=== PATIENT | male | born 1985 | race Caucasian/White ===

== ENCOUNTER 2017-01-02 13:44 | Inpatient (IN) | payer MEDICARE, OTHER ==
[2017-01-01 23:00] VITALS: BP 132/80
[~2017-01-02] VITALS: Ht 172.7 cm; Wt 101.2 kg
[2017-01-02 14:10] LABS: BASO # 0.1 x10^3/uL (0.0-0.2); BASO % 1 % (0-3); EOS % 2 % (0-3); HEMATOCRIT 44.5 % (39.0-53.0); HEMOGLOBIN 15.3 g/dL (13.0-17.5); LYMPH # 2.6 x10^3/uL (1.0-4.8); LYMPH % 34 % (24-48); MEAN CORPUSCULAR HEMOGLOBIN 33 pg (25-35); MEAN CORPUSCULAR HGB CONC 34 g/dL (31-37); MEAN CORPUSCULAR VOLUME 96 fL (79-100); MONO % 7 % (0-9); NEUT % 57 % (31-73); PLATELET COUNT 315 x10^3/uL (140-400); RED BLOOD COUNT 4.65 x10^6/uL (4.30-5.70); RED CELL DISTRIBUTION WIDTH 13.2 % (11.5-14.5); WHITE BLOOD COUNT 7.7 x10^3/uL (4.0-11.0)
[2017-01-02 14:21] LABS: CALCIUM 9.2 mg/dL (8.5-10.1); CREATININE 0.9 mg/dL (0.7-1.3); GFR 99.1
[2017-01-02 14:49] LABS: BARBITURATES NEG (NEG); BENZODIAZEPINES NEG (NEG); CANNABINOIDS NEG (NEG); COCAINE NEG (NEG); METHADONE NEG (NEG); OPIATES NEG (NEG); PHENCYCLIDINE NEG (NEG)
[2017-01-02 14:50] LABS: ETHANOL, URINE NEG (NEG)
[2017-01-02] MEDS: ACETAMINOPHEN 500 MG TABLET PO ONE ×2 (15:15→18:35)
--- NOTE | 2017-01-02 17:31 | PHYS DOC ---
Past Medical History Past Medical History: Hypertension, Schizophrenia, Unknown, Other Additional Past Medical Histor: AUTISM, PT IS POOR HISTORIAN- FUNCTIONS @ LEVEL OF EARLY ADOLESCENT Past Surgical History: Other Additional Past Surgical Histo: PT DENIES, IS POOR HISTORIAN Alcohol Use: None Drug Use: None Adult General Chief Complaint Chief Complaint: SUICDAL IDEATION HPI HPI 31-year-old male has history of behavioral disorder and autism with a developmental cognitive ability of a 12-year-old who presents with suicidal ideation. Patient did state he tried to stab himself before can is been trying to choke himself in an attempt to kill his life. He states he has multiple ways he would like to kill himself including drowning and is fixation. Patient denies any recent drugs or alcohol. He is fully alert and oriented and able answer my questions and complaining of suicidal thoughts. He denies any chest pain or shortness breath. He denies any fever or chills. Review of Systems Review of Systems Constitutional: Denies fever or chills [] Eyes: Denies change in visual acuity, redness, or eye pain [] HENT: Denies nasal congestion or sore throat [] Respiratory: Denies cough or shortness of breath [] Cardiovascular: No additional information not addressed in HPI [] GI: Denies abdominal pain, nausea, vomiting, bloody stools or diarrhea [] : Denies dysuria or hematuria [] Musculoskeletal: Denies back pain or joint pain [] Integument: Denies rash or skin lesions [] Neurologic: Denies headache, focal weakness or sensory changes [] Endocrine: Denies polyuria or polydipsia [] Current Medications Current Medications Current Medications Medications (Trade) Dose Ordered Sig/[facility] Start Time Stop Time Status Last Admin Dose Admin Acetaminophen (Tylenol) 1,000 mg 1X ONCE 01/02/17 15:15 01/02/17 15:23 DC Allergies Allergies Allergies Coded Allergies Type Severity Reaction Last Updated Verified Unable to Assess 01/02/17 No Physical Exam Physical Exam Constitutional: Well developed, well nourished, no acute distress, non-toxic appearance. [] HENT: Normocephalic, atraumatic, bilateral external ears normal, oropharynx moist, no oral exudates, nose normal. [] Eyes: PERRLA, EOMI, conjunctiva normal, no discharge. [] Neck: Normal range of motion, no tenderness, supple, no stridor. [] Cardiovascular:Heart rate regular rhythm, no murmur [] Lungs & Thorax: Bilateral breath sounds clear to auscultation [] Abdomen: Bowel sounds normal, soft, no tenderness, no masses, no pulsatile masses. [] Skin: Warm, dry, no erythema, no rash. [] Back: No tenderness, no CVA tenderness. [] Extremities: No tenderness, no cyanosis, no clubbing, ROM intact, no edema. [] Neurologic: Alert and oriented X 3, normal motor function, normal sensory function, no focal deficits noted. [] Psychologic: Affect normal, judgement normal, mood normal. [] Current Patient Data Vital Signs Vital Signs Date Time Temp Pulse Resp B/P Pulse Ox O2 Delivery O2 Flow Rate FiO2 01/02/17 16:30 98 16 144/89 96 01/02/17 13:56 97.9 Room Air 97.9 Lab Values Laboratory Tests Test 01/02/17 14:00 01/02/17 14:32 White Blood Count 7.7x10^3/uL (4.0-11.0) Red Blood Count 4.65x10^6/uL (4.30-5.70) Hemoglobin 15.3g/dL (13.0-17.5) Hematocrit 44.5% (39.0-53.0) Mean Corpuscular Volume 96fL (79-100) Mean Corpuscular Hemoglobin 33pg (25-35) Mean Corpuscular Hemoglobin Concent 34g/dL (31-37) Red Cell Distribution Width 13.2% (11.5-14.5) Platelet Count 315x10^3/uL (140-400) Neutrophils (%) (Auto) 57% (31-73) Lymphocytes (%) (Auto) 34% (24-48) Monocytes (%) (Auto) 7% (0-9) Eosinophils (%) (Auto) 2% (0-3) Basophils (%) (Auto) 1% (0-3) Neutrophils # (Auto) 4.4x10^3uL (1.8-7.7) Lymphocytes # (Auto) 2.6x10^3/uL (1.0-4.8) Monocytes # (Auto) 0.6x10^3/uL (0.0-1.1) Eosinophils # (Auto) 0.1x10^3/uL (0.0-0.7) Basophils # (Auto) 0.1x10^3/uL (0.0-0.2) Sodium Level 140mmol/L (136-145) Potassium Level 4.0mmol/L (3.5-5.1) Chloride Level 101mmol/L (98-107) Carbon Dioxide Level 27mmol/L (21-32) Anion Gap 12 (6-14) Blood Urea Nitrogen 13mg/dL (8-26) Creatinine 0.9mg/dL (0.7-1.3) Estimated GFR (Cockcroft-Gault) 99.1 Glucose Level 117mg/dL (70-99) H Calcium Level 9.2mg/dL (8.5-10.1) Ethyl Alcohol Level < 10mg/dL (0-10) Urine Opiates Screen Neg (NEG) Urine Methadone Screen Neg (NEG) Urine Barbiturates Neg (NEG) Urine Phencyclidine Screen Neg (NEG) Urine Amphetamine/Methamphetamine Neg (NEG) Urine Benzodiazepines Screen Neg (NEG) Urine Cocaine Screen Neg (NEG) Urine Cannabinoids Screen Neg (NEG) Urine Ethyl Alcohol Neg (NEG) Laboratory Tests 01/02/17 14:00 Laboratory Tests 01/02/17 14:00 EKG EKG [] Radiology/Procedures Radiology/Procedures [] Course & Med Decision Making Course & Med Decision Making Pertinent Labs and Imaging studies reviewed. (See chart for details) This 31-year-old male with ongoing suicidal thoughts will be admitted to hospital. Psychiatric assessment team was notified and was able to find placement for him at a facility but he will not be able to be transferred at this time as they do not have availability. For this reason, the patient will be admitted for his ongoing suicidal ideation. Laboratory workup was obtained and was negative for any acute abnormalities. He is medically cleared from my standpoint. I discussed the need to admit the patient with the hospitalist, Dr. Cooper, who agreed to accept the patient for further evaluation and treatment. Dragon Disclaimer Dragon Disclaimer This electronic medical record was generated, in whole or in part, using a voice recognition dictation system. Departure Departure Impression: Primary Impression: Suicidal ideation Disposition: ADMITTED INPATIENT Admitting Physician: Mere Cooper Condition: STABLE Referrals: UNKNOWN PCP NAME (PCP) AXEL LESLIE DO Jan 02, 2017 17:31
[2017-01-02] MEDS ORDERED: ACETAMINOPHEN 325 MG TABLET. PO PRN (17:45)
[2017-01-02] MEDS ORDERED: ONDANSETRON PF 4 MG/2 ML VIAL. IV PRN ×2 (17:45→19:05)
--- NOTE | 2017-01-02 18:44 | ACF ---
Admission Forms Criteria PSYCHIATRIC DISORDERS Clinical Indications for Inpatient Care (Place 'X' for any and all applicable criteria): Ongoing inpatient care may be needed for ANY ONE of the following(1)(2)(3)(4)(6) (7)(8): [X]I. Danger to self or others not manageable at lower level of care. [ ]II. Grave disability (eg, inability to perform self care necessary at lower level of care) [ ]III. Agitation or inappropriate behavior interfering with care for primary condition (eg, attempting to discontinue lines or drains prematurely, unable to cooperate with respiratory care) [ ]IV. Severe disability or disorder indicated by ALL of the following: [ ]a) Severe behavioral health disorder-related symptoms or condition indicated by ANY ONE of the following: [ ]i) Severe problem with cognition, memory, judgment, or impulse control [ ]ii) Severe clinical manifestations (eg, hallucinations, delusions, other acute psychotic symptoms, shawn, extreme agitation or anxiety) [ ]b) Patient management at lower level of care is not feasible until acute intervention or modification is initiated. Extended stay beyond goal length of stay for the primary condition may be indicated when ANY ONE of the following is present: (1)(2)(3)(4): [ ]a) Patient is a danger to self or others and not manageable at lower level of care. [ ]b) Behavior crisis management, including physical or chemical restraints, is required and is not available at a lower level of care. [ ]c) Behavioral symptoms (e.g., agitation, somnolence, inappropriate behavior) are present, and are not manageable at a lower level of care. [ ]d) Patient cannot understand follow-up treatment and crisis plan. [ ]e) Provider and supports are not sufficiently available at lower level of care. [ ]f) Patient cannot participate (e.g., verify absence of plan for harm) and is in needed of monitoring. The original [employer] content created by [employer] has been revised. The portions of the content which have been revised are identified through the use of italic text or in bold, and [facility] has neither reviewed nor approved the modified material. All other unmodified content is copyright [facility] [employer]. Please see references footnoted in the original [facility] edition 2016 Admission Criteria Met?: Yes EDER AVILA Jan 02, 2017 18:44
[2017-01-02 19:10] VITALS: BP 129/83
[2017-01-02] MEDS ORDERED: ZOLPIDEM 5 MG TABLET. PO PRN (19:15)
[2017-01-02] MEDS ORDERED: LORAZEPAM 2 MG/ML VIAL IV PRN (19:15)
[2017-01-02 19:56] VITALS: BP 129/83
--- NOTE | 2017-01-02 19:59 | PDOC1 ---
History and Physical Date of Admission Date of Admission DATE: 01/02/17 TIME: 19:54 Identification/Chief Complaint Chief Complaint suicide attempt Source Source: Caregiver, Chart review, Patient History of Present Illness History of Present Illness 31 y.o male, rather poor historian now or at least limited as he is not overtly open to me, suicide attempt today by choking himself (trying to strangle himself with his own hands) and mention of stabbing attempt per ER documentation, HAs attempted before, HE tried this at home, lives with parents? and the mother called EMS. UDs and labs neg. Pt admitted for the SI, Pt feel sore on the neck, when asked why he did it, he mentions something about his brother and he does not want to go to nursing home for something he did not do. Pt slightly drowsy through my encounter Past Medical History Psych: Depression Past Surgical History Past Surgical History: No pertinent history Family History Family History: Family History Unknown Social History Smoke: No ALCOHOL: social Drugs: None Current Problem List Problem List Problems Medical Problems: (1) Suicidal ideation Status: Acute Problems: Current Medications Current Medications Current Medications Acetaminophen (Tylenol) 1,000 mg 1X ONCE PO Last administered on 01/02/17t 18: 35; Start 01/02/17 at 15:15; Stop 01/02/17 at 15:23; Status DC Ondansetron HCl (Zofran) 4 mg PRN Q8HRS PRN IV NAUSEA/VOMITING; Start 01/02/17 at 17:45; Stop 01/02/17 at 19:06; Status DC Acetaminophen (Tylenol) 650 mg PRN Q4HRS PRN PO FEVER; Start 01/02/17 at 17:45 ; Stop 01/03/17 at 17:44 Ondansetron HCl (Zofran) 4 mg PRN Q6HRS PRN IV NAUSEA/VOMITING; Start 01/02/17 at 19:05 Alprazolam (Xanax) 0.5 mg PRN Q8HRS PRN PO ANXIETY / AGITATION; Start 01/02/17 at 19:15 Lorazepam (Ativan) 2 mg PRN Q4HRS PRN IV ANXIETY / AGITATION; Start 01/02/17 at 19:15 Zolpidem Tartrate (Ambien) 5 mg PRN QHS PRN PO INSOMNIA, MAY REPEAT IN 1HR; Start 01/02/17 at 19:15 Allergies Allergies: Coded Allergies: No Known Drug Allergies (Unverified , 01/02/17) ROS Review of System limited, drowsy, weak, not open to my encounter Physical Exam General: No acute distress, Other (sleepy, drowsy) Lungs: Clear to auscultation, Normal air movement Heart: S1S2, no gallops Cardiovascular: S1, S2 Breasts: Normal, Rt breast nml w/o mass, Lt breast nml w/o mass, Nipples normal Abdomen: Normal bowel sounds, Soft, No tenderness, No hepatosplenomegaly, No masses Male Genitals Exam: normal genitalia, normal prostate Rectal Exam: mass PELVIC: Nml ext vulva Extremities: No clubbing, No cyanosis, No edema, Normal pulses, No tenderness/ swelling Skin: No rashes, No breakdown, No significant lesion Psych/Mental Status: Mental status NL, Mood NL Vitals Vitals Vital Signs Date Time Temp Pulse Resp B/P Pulse Ox O2 Delivery O2 Flow Rate FiO2 01/02/17 18:00 92 16 141/93 95 01/02/17 13:56 97.9 Room Air 97.9 Labs Labs Laboratory Tests Test 01/02/17 14:00 01/02/17 14:32 White Blood Count 7.7x10^3/uL (4.0-11.0) Red Blood Count 4.65x10^6/uL (4.30-5.70) Hemoglobin 15.3g/dL (13.0-17.5) Hematocrit 44.5% (39.0-53.0) Mean Corpuscular Volume 96fL (79-100) Mean Corpuscular Hemoglobin 33pg (25-35) Mean Corpuscular Hemoglobin Concent 34g/dL (31-37) Red Cell Distribution Width 13.2% (11.5-14.5) Platelet Count 315x10^3/uL (140-400) Neutrophils (%) (Auto) 57% (31-73) Lymphocytes (%) (Auto) 34% (24-48) Monocytes (%) (Auto) 7% (0-9) Eosinophils (%) (Auto) 2% (0-3) Basophils (%) (Auto) 1% (0-3) Neutrophils # (Auto) 4.4x10^3uL (1.8-7.7) Lymphocytes # (Auto) 2.6x10^3/uL (1.0-4.8) Monocytes # (Auto) 0.6x10^3/uL (0.0-1.1) Eosinophils # (Auto) 0.1x10^3/uL (0.0-0.7) Basophils # (Auto) 0.1x10^3/uL (0.0-0.2) Sodium Level 140mmol/L (136-145) Potassium Level 4.0mmol/L (3.5-5.1) Chloride Level 101mmol/L (98-107) Carbon Dioxide Level 27mmol/L (21-32) Anion Gap 12 (6-14) Blood Urea Nitrogen 13mg/dL (8-26) Creatinine 0.9mg/dL (0.7-1.3) Estimated GFR (Cockcroft-Gault) 99.1 Glucose Level 117mg/dL (70-99) Calcium Level 9.2mg/dL (8.5-10.1) Ethyl Alcohol Level < 10mg/dL (0-10) Urine Opiates Screen Neg (NEG) Urine Methadone Screen Neg (NEG) Urine Barbiturates Neg (NEG) Urine Phencyclidine Screen Neg (NEG) Urine Amphetamine/Methamphetamine Neg (NEG) Urine Benzodiazepines Screen Neg (NEG) Urine Cocaine Screen Neg (NEG) Urine Cannabinoids Screen Neg (NEG) Urine Ethyl Alcohol Neg (NEG) Laboratory Tests Test 01/02/17 14:00 01/02/17 14:32 White Blood Count 7.7x10^3/uL (4.0-11.0) Red Blood Count 4.65x10^6/uL (4.30-5.70) Hemoglobin 15.3g/dL (13.0-17.5) Hematocrit 44.5% (39.0-53.0) Mean Corpuscular Volume 96fL (79-100) Mean Corpuscular Hemoglobin 33pg (25-35) Mean Corpuscular Hemoglobin Concent 34g/dL (31-37) Red Cell Distribution Width 13.2% (11.5-14.5) Platelet Count 315x10^3/uL (140-400) Neutrophils (%) (Auto) 57% (31-73) Lymphocytes (%) (Auto) 34% (24-48) Monocytes (%) (Auto) 7% (0-9) Eosinophils (%) (Auto) 2% (0-3) Basophils (%) (Auto) 1% (0-3) Neutrophils # (Auto) 4.4x10^3uL (1.8-7.7) Lymphocytes # (Auto) 2.6x10^3/uL (1.0-4.8) Monocytes # (Auto) 0.6x10^3/uL (0.0-1.1) Eosinophils # (Auto) 0.1x10^3/uL (0.0-0.7) Basophils # (Auto) 0.1x10^3/uL (0.0-0.2) Sodium Level 140mmol/L (136-145) Potassium Level 4.0mmol/L (3.5-5.1) Chloride Level 101mmol/L (98-107) Carbon Dioxide Level 27mmol/L (21-32) Anion Gap 12 (6-14) Blood Urea Nitrogen 13mg/dL (8-26) Creatinine 0.9mg/dL (0.7-1.3) Estimated GFR (Cockcroft-Gault) 99.1 Glucose Level 117mg/dL (70-99) Calcium Level 9.2mg/dL (8.5-10.1) Ethyl Alcohol Level < 10mg/dL (0-10) Urine Opiates Screen Neg (NEG) Urine Methadone Screen Neg (NEG) Urine Barbiturates Neg (NEG) Urine Phencyclidine Screen Neg (NEG) Urine Amphetamine/Methamphetamine Neg (NEG) Urine Benzodiazepines Screen Neg (NEG) Urine Cocaine Screen Neg (NEG) Urine Cannabinoids Screen Neg (NEG) Urine Ethyl Alcohol Neg (NEG) VTE Prophylaxis Ordered VTE Prophylaxis Devices: Yes VTE Pharmacological Prophylaxi: Yes Assessment/Plan Assessment/Plan 1. SUicide attempt by self strangulation 2. Sore neck/throat sec to above 3. Depression likely PLAn: Ok for diet 1:1 SW - life crisi referral ER HARLAN Abraham MD Jan 02, 2017 19:58
[2017-01-02] MEDS: ALPRAZOLAM 0.5 MG TABLET PO PRN (20:47)
[2017-01-02 21:38] VITALS: BP 129/83
[2017-01-02] MEDS ORDERED: LORA0.5T96 PO (22:01)
[2017-01-02] MEDS ORDERED: FLUO40CA9 PO (22:05)
[2017-01-02] MEDS ORDERED: AMLO5TAB4 PO (22:29)
[2017-01-02] MEDS ORDERED: RISP3TAB23 PO (22:29)
[2017-01-02] MEDS ORDERED: OXCA300T PO (22:29)
[2017-01-02] MEDS ORDERED: HYDR25TA PO (22:29)
[2017-01-02 23:00] VITALS: BP 130/80
[2017-01-03] VITALS (7 sets, daily range): BP systolic 115–138; BP diastolic 73–86
--- NOTE | 2017-01-03 01:23 | EKG ---
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
[2017-01-03] MEDS: KETOROLAC TROMETHAMINE 30 MG/ML SYRINGE. IV PRN ×3 (02:18→21:00)
--- NOTE | 2017-01-03 10:45 | PDOC ---
PROGRESS NOTES Chief Complaint Chief Complaint cc: suicidal ideations. A/P Suicidal ideations and attempt Plan 1-1 sitter suicidal precautions d/w sw, inpt psychiatry hospital placement pending PRN tordal for pain control Vitals Vitals Vital Signs Date Time Temp Pulse Resp B/P Pulse Ox O2 Delivery O2 Flow Rate FiO2 01/03/17 08:00 Room Air 01/03/17 07:00 97.2 73 22 123/86 99 97.2 Physical Exam General: Alert, Oriented X3, No acute distress, Other Heart: Normal S1, Normal S2 Abdomen: Normal bowel sounds, Soft, No tenderness, No hepatosplenomegaly, No masses Extremities: No clubbing, No cyanosis, No edema, Normal pulses, No tenderness/ swelling Skin: No rashes, No breakdown, No significant lesion Labs LABS Laboratory Tests Test 01/02/17 14:00 01/02/17 14:32 White Blood Count 7.7x10^3/uL (4.0-11.0) Red Blood Count 4.65x10^6/uL (4.30-5.70) Hemoglobin 15.3g/dL (13.0-17.5) Hematocrit 44.5% (39.0-53.0) Mean Corpuscular Volume 96fL (79-100) Mean Corpuscular Hemoglobin 33pg (25-35) Mean Corpuscular Hemoglobin Concent 34g/dL (31-37) Red Cell Distribution Width 13.2% (11.5-14.5) Platelet Count 315x10^3/uL (140-400) Neutrophils (%) (Auto) 57% (31-73) Lymphocytes (%) (Auto) 34% (24-48) Monocytes (%) (Auto) 7% (0-9) Eosinophils (%) (Auto) 2% (0-3) Basophils (%) (Auto) 1% (0-3) Neutrophils # (Auto) 4.4x10^3uL (1.8-7.7) Lymphocytes # (Auto) 2.6x10^3/uL (1.0-4.8) Monocytes # (Auto) 0.6x10^3/uL (0.0-1.1) Eosinophils # (Auto) 0.1x10^3/uL (0.0-0.7) Basophils # (Auto) 0.1x10^3/uL (0.0-0.2) Sodium Level 140mmol/L (136-145) Potassium Level 4.0mmol/L (3.5-5.1) Chloride Level 101mmol/L (98-107) Carbon Dioxide Level 27mmol/L (21-32) Anion Gap 12 (6-14) Blood Urea Nitrogen 13mg/dL (8-26) Creatinine 0.9mg/dL (0.7-1.3) Estimated GFR (Cockcroft-Gault) 99.1 Glucose Level 117mg/dL (70-99) Calcium Level 9.2mg/dL (8.5-10.1) Ethyl Alcohol Level < 10mg/dL (0-10) Urine Opiates Screen Neg (NEG) Urine Methadone Screen Neg (NEG) Urine Barbiturates Neg (NEG) Urine Phencyclidine Screen Neg (NEG) Urine Amphetamine/Methamphetamine Neg (NEG) Urine Benzodiazepines Screen Neg (NEG) Urine Cocaine Screen Neg (NEG) Urine Cannabinoids Screen Neg (NEG) Urine Ethyl Alcohol Neg (NEG) Assessment and Plan Assessmemt and Plan Problems Medical Problems: (1) Suicidal ideation Status: Acute Problems: Comment Review of Relevant I have reviewed the following items gloria (where applicable) has been applied. Labs Laboratory Tests Test 01/02/17 14:00 01/02/17 14:32 White Blood Count 7.7x10^3/uL (4.0-11.0) Red Blood Count 4.65x10^6/uL (4.30-5.70) Hemoglobin 15.3g/dL (13.0-17.5) Hematocrit 44.5% (39.0-53.0) Mean Corpuscular Volume 96fL (79-100) Mean Corpuscular Hemoglobin 33pg (25-35) Mean Corpuscular Hemoglobin Concent 34g/dL (31-37) Red Cell Distribution Width 13.2% (11.5-14.5) Platelet Count 315x10^3/uL (140-400) Neutrophils (%) (Auto) 57% (31-73) Lymphocytes (%) (Auto) 34% (24-48) Monocytes (%) (Auto) 7% (0-9) Eosinophils (%) (Auto) 2% (0-3) Basophils (%) (Auto) 1% (0-3) Neutrophils # (Auto) 4.4x10^3uL (1.8-7.7) Lymphocytes # (Auto) 2.6x10^3/uL (1.0-4.8) Monocytes # (Auto) 0.6x10^3/uL (0.0-1.1) Eosinophils # (Auto) 0.1x10^3/uL (0.0-0.7) Basophils # (Auto) 0.1x10^3/uL (0.0-0.2) Sodium Level 140mmol/L (136-145) Potassium Level 4.0mmol/L (3.5-5.1) Chloride Level 101mmol/L (98-107) Carbon Dioxide Level 27mmol/L (21-32) Anion Gap 12 (6-14) Blood Urea Nitrogen 13mg/dL (8-26) Creatinine 0.9mg/dL (0.7-1.3) Estimated GFR (Cockcroft-Gault) 99.1 Glucose Level 117mg/dL (70-99) Calcium Level 9.2mg/dL (8.5-10.1) Ethyl Alcohol Level < 10mg/dL (0-10) Urine Opiates Screen Neg (NEG) Urine Methadone Screen Neg (NEG) Urine Barbiturates Neg (NEG) Urine Phencyclidine Screen Neg (NEG) Urine Amphetamine/Methamphetamine Neg (NEG) Urine Benzodiazepines Screen Neg (NEG) Urine Cocaine Screen Neg (NEG) Urine Cannabinoids Screen Neg (NEG) Urine Ethyl Alcohol Neg (NEG) Laboratory Tests Test 01/02/17 14:00 01/02/17 14:32 White Blood Count 7.7x10^3/uL (4.0-11.0) Red Blood Count 4.65x10^6/uL (4.30-5.70) Hemoglobin 15.3g/dL (13.0-17.5) Hematocrit 44.5% (39.0-53.0) Mean Corpuscular Volume 96fL (79-100) Mean Corpuscular Hemoglobin 33pg (25-35) Mean Corpuscular Hemoglobin Concent 34g/dL (31-37) Red Cell Distribution Width 13.2% (11.5-14.5) Platelet Count 315x10^3/uL (140-400) Neutrophils (%) (Auto) 57% (31-73) Lymphocytes (%) (Auto) 34% (24-48) Monocytes (%) (Auto) 7% (0-9) Eosinophils (%) (Auto) 2% (0-3) Basophils (%) (Auto) 1% (0-3) Neutrophils # (Auto) 4.4x10^3uL (1.8-7.7) Lymphocytes # (Auto) 2.6x10^3/uL (1.0-4.8) Monocytes # (Auto) 0.6x10^3/uL (0.0-1.1) Eosinophils # (Auto) 0.1x10^3/uL (0.0-0.7) Basophils # (Auto) 0.1x10^3/uL (0.0-0.2) Sodium Level 140mmol/L (136-145) Potassium Level 4.0mmol/L (3.5-5.1) Chloride Level 101mmol/L (98-107) Carbon Dioxide Level 27mmol/L (21-32) Anion Gap 12 (6-14) Blood Urea Nitrogen 13mg/dL (8-26) Creatinine 0.9mg/dL (0.7-1.3) Estimated GFR (Cockcroft-Gault) 99.1 Glucose Level 117mg/dL (70-99) Calcium Level 9.2mg/dL (8.5-10.1) Ethyl Alcohol Level < 10mg/dL (0-10) Urine Opiates Screen Neg (NEG) Urine Methadone Screen Neg (NEG) Urine Barbiturates Neg (NEG) Urine Phencyclidine Screen Neg (NEG) Urine Amphetamine/Methamphetamine Neg (NEG) Urine Benzodiazepines Screen Neg (NEG) Urine Cocaine Screen Neg (NEG) Urine Cannabinoids Screen Neg (NEG) Urine Ethyl Alcohol Neg (NEG) Medications Current Medications Acetaminophen (Tylenol) 1,000 mg 1X ONCE PO Last administered on 01/02/17t 18: 35; Start 01/02/17 at 15:15; Stop 01/02/17 at 15:23; Status DC Ondansetron HCl (Zofran) 4 mg PRN Q8HRS PRN IV NAUSEA/VOMITING; Start 01/02/17 at 17:45; Stop 01/02/17 at 19:06; Status DC Acetaminophen (Tylenol) 650 mg PRN Q4HRS PRN PO FEVER; Start 01/02/17 at 17:45 ; Stop 01/03/17 at 17:44 Ondansetron HCl (Zofran) 4 mg PRN Q6HRS PRN IV NAUSEA/VOMITING Last administered on 01/03/17 02:08; Start 01/02/17 at 19:05 Alprazolam (Xanax) 0.5 mg PRN Q8HRS PRN PO ANXIETY / AGITATION Last administered on 01/02/17 20:47; Start 01/02/17 at 19:15 Lorazepam (Ativan) 2 mg PRN Q4HRS PRN IV ANXIETY / AGITATION; Start 01/02/17 at 19:15 Zolpidem Tartrate (Ambien) 5 mg PRN QHS PRN PO INSOMNIA, MAY REPEAT IN 1HR; Start 01/02/17 at 19:15 Ketorolac Tromethamine (Toradol) 30 mg PRN Q6HRS PRN IV PAIN Last administered on 01/03/17 10:10; Start 01/03/17 at 02:00; Stop 01/08/17 at 01:59 Active Scripts Active Reported Norvasc (Amlodipine Besylate) 5 Mg Tablet 5 Mg PO DAILY Hydroxyzine Hcl 25 Mg Tablet 25 Mg PO TID Oxcarbazepine 300 Mg Tablet 2 Tab PO BID Risperdal (Risperidone) 3 Mg Tablet 1 Tab PO QHS Prozac (Fluoxetine Hcl) 40 Mg Capsule 40 Mg PO DAILY Ativan (Lorazepam) 0.5 Mg Tablet 0.25 Mg PO Q12HR Vitals/I & O Vital Sign - Last 24 Hours 01/02/17 01/02/17 01/02/17 01/02/17 13:56 14:30 15:30 16:30 Temp 97.9 97.9 Pulse 92 88 100 98 Resp 15 16 18 16 B/P 177/89 178/97 147/92 144/89 Pulse Ox 99 98 96 96 O2 Delivery Room Air 01/02/17 01/02/17 01/02/17 01/02/17 17:30 18:00 19:10 19:56 Temp 97.7 97.7 97.7 97.7 Pulse 102 92 79 79 Resp 18 16 20 B/P 147/95 141/93 129/83 129/83 Pulse Ox 96 95 96 97 O2 Delivery Room Air Room Air 01/02/17 01/02/17 01/02/17 01/02/17 20:00 20:52 21:38 23:00 Temp 97.7 97.7 97.7 97.7 Pulse 79 80 Resp 18 B/P 129/83 130/80 Pulse Ox 97 97 O2 Delivery Room Air Room Air Room Air Room Air 01/03/17 01/03/17 01/03/17 03:00 07:00 08:00 Temp 97.7 97.2 97.7 97.2 Pulse 70 73 Resp 18 22 B/P 126/78 123/86 Pulse Ox 97 99 O2 Delivery Room Air Room Air Room Air Intake and Output 01/02/17 01/02/17 01/03/17 15:00 23:00 07:00 Intake Total 300 ml 300 ml Output Total 650 ml Balance 300 ml -350 ml JASON CORTES MD Jan 03, 2017 10:45
[2017-01-03] MEDS: ALPRAZOLAM 0.5 MG TABLET PO PRN (14:15)
[2017-01-03 22:16] LABS: BILIRUBIN,URINE NEGATIVE (NEG); GLUCOSE,URINE NEGATIVE (NEG); NITRITE,URINE NEGATIVE (NEG); PROTEIN,URINE NEGATIVE (NEG-TRACE); UROBILINOGEN,URINE 0.2 mg/dL (0.2 mg/dL)
[2017-01-03 22:21] LABS: BACTERIA,URINE 0 /HPF (0-FEW); RBC,URINE 0 /HPF (0-2); SQUAMOUS EPITHELIAL CELL,UR FEW /LPF; WBC,URINE OCC /HPF (0-4)
[2017-01-04] MEDS ORDERED: ALPRAZOLAM 0.5 MG TABLET. ONE ×2 (01:01→09:45)
[2017-01-04] MEDS: ALPRAZOLAM 0.5 MG TABLET PO PRN ×2 (01:02→09:47)
[2017-01-04 06:31] VITALS: BP 137/89
[2017-01-04] MEDS: KETOROLAC TROMETHAMINE 30 MG/ML SYRINGE. IV PRN (07:06)
--- NOTE | 2017-01-04 07:40 | PDOC ---
PROGRESS NOTES Chief Complaint Chief Complaint cc: suicidal ideations. A/P Suicidal ideations resolved. Plan Xanax No active suicidal ideations/plans Vitals Vitals Vital Signs Date Time Temp Pulse Resp B/P Pulse Ox O2 Delivery O2 Flow Rate FiO2 01/04/17 06:31 96.4 65 20 137/89 95 Room Air 96.4 Physical Exam General: Alert, Oriented X3, No acute distress, Other Heart: Regular rate, Normal S1, Normal S2 Lungs: Clear Abdomen: Normal bowel sounds, Soft, No tenderness, No hepatosplenomegaly, No masses Extremities: No clubbing, No cyanosis, No edema, Normal pulses, No tenderness/ swelling Skin: No rashes, No breakdown, No significant lesion Labs LABS Laboratory Tests Test 01/03/17 21:00 Urine Collection Type Unknown Urine Color Yellow Urine Clarity Clear Urine pH 6.0 Urine Specific [place] 1.025 Urine Protein Negativemg/dL (NEG-TRACE) Urine Glucose (UA) Negativemg/dL (NEG) Urine Ketones (Stick) Negativemg/dL (NEG) Urine Blood Negative (NEG) Urine Nitrite Negative (NEG) Urine Bilirubin Negative (NEG) Urine Urobilinogen Dipstick 0.2mg/dL (0.2 mg/dL) Urine Leukocyte Esterase Negative (NEG) Urine RBC 0/HPF (0-2) Urine WBC Occ/HPF (0-4) Urine Squamous Epithelial Cells Few/LPF Urine Bacteria 0/HPF (0-FEW) Urine Mucus Marked/LPF Assessment and Plan Assessmemt and Plan Problems Medical Problems: (1) Suicidal ideation Status: Acute Problems: Comment Review of Relevant I have reviewed the following items gloria (where applicable) has been applied. Labs Laboratory Tests Test 01/02/17 14:00 01/02/17 14:32 01/03/17 21:00 White Blood Count 7.7x10^3/uL (4.0-11.0) Red Blood Count 4.65x10^6/uL (4.30-5.70) Hemoglobin 15.3g/dL (13.0-17.5) Hematocrit 44.5% (39.0-53.0) Mean Corpuscular Volume 96fL (79-100) Mean Corpuscular Hemoglobin 33pg (25-35) Mean Corpuscular Hemoglobin Concent 34g/dL (31-37) Red Cell Distribution Width 13.2% (11.5-14.5) Platelet Count 315x10^3/uL (140-400) Neutrophils (%) (Auto) 57% (31-73) Lymphocytes (%) (Auto) 34% (24-48) Monocytes (%) (Auto) 7% (0-9) Eosinophils (%) (Auto) 2% (0-3) Basophils (%) (Auto) 1% (0-3) Neutrophils # (Auto) 4.4x10^3uL (1.8-7.7) Lymphocytes # (Auto) 2.6x10^3/uL (1.0-4.8) Monocytes # (Auto) 0.6x10^3/uL (0.0-1.1) Eosinophils # (Auto) 0.1x10^3/uL (0.0-0.7) Basophils # (Auto) 0.1x10^3/uL (0.0-0.2) Sodium Level 140mmol/L (136-145) Potassium Level 4.0mmol/L (3.5-5.1) Chloride Level 101mmol/L (98-107) Carbon Dioxide Level 27mmol/L (21-32) Anion Gap 12 (6-14) Blood Urea Nitrogen 13mg/dL (8-26) Creatinine 0.9mg/dL (0.7-1.3) Estimated GFR (Cockcroft-Gault) 99.1 Glucose Level 117mg/dL (70-99) Calcium Level 9.2mg/dL (8.5-10.1) Ethyl Alcohol Level < 10mg/dL (0-10) Urine Opiates Screen Neg (NEG) Urine Methadone Screen Neg (NEG) Urine Barbiturates Neg (NEG) Urine Phencyclidine Screen Neg (NEG) Urine Amphetamine/Methamphetamine Neg (NEG) Urine Benzodiazepines Screen Neg (NEG) Urine Cocaine Screen Neg (NEG) Urine Cannabinoids Screen Neg (NEG) Urine Ethyl Alcohol Neg (NEG) Urine Collection Type Unknown Urine Color Yellow Urine Clarity Clear Urine pH 6.0 Urine Specific [place] 1.025 Urine Protein Negativemg/dL (NEG-TRACE) Urine Glucose (UA) Negativemg/dL (NEG) Urine Ketones (Stick) Negativemg/dL (NEG) Urine Blood Negative (NEG) Urine Nitrite Negative (NEG) Urine Bilirubin Negative (NEG) Urine Urobilinogen Dipstick 0.2mg/dL (0.2 mg/dL) Urine Leukocyte Esterase Negative (NEG) Urine RBC 0/HPF (0-2) Urine WBC Occ/HPF (0-4) Urine Squamous Epithelial Cells Few/LPF Urine Bacteria 0/HPF (0-FEW) Urine Mucus Marked/LPF Laboratory Tests Test 01/03/17 21:00 Urine Collection Type Unknown Urine Color Yellow Urine Clarity Clear Urine pH 6.0 Urine Specific [place] 1.025 Urine Protein Negativemg/dL (NEG-TRACE) Urine Glucose (UA) Negativemg/dL (NEG) Urine Ketones (Stick) Negativemg/dL (NEG) Urine Blood Negative (NEG) Urine Nitrite Negative (NEG) Urine Bilirubin Negative (NEG) Urine Urobilinogen Dipstick 0.2mg/dL (0.2 mg/dL) Urine Leukocyte Esterase Negative (NEG) Urine RBC 0/HPF (0-2) Urine WBC Occ/HPF (0-4) Urine Squamous Epithelial Cells Few/LPF Urine Bacteria 0/HPF (0-FEW) Urine Mucus Marked/LPF Medications Current Medications Acetaminophen (Tylenol) 1,000 mg 1X ONCE PO Last administered on 01/02/17 18: 35; Start 01/02/17 at 15:15; Stop 01/02/17 at 15:23; Status DC Ondansetron HCl (Zofran) 4 mg PRN Q8HRS PRN IV NAUSEA/VOMITING; Start 01/02/17 at 17:45; Stop 01/02/17 at 19:06; Status DC Acetaminophen (Tylenol) 650 mg PRN Q4HRS PRN PO FEVER; Start 01/02/17 at 17:45 ; Stop 01/03/17 at 17:44; Status DC Ondansetron HCl (Zofran) 4 mg PRN Q6HRS PRN IV NAUSEA/VOMITING Last administered on 01/03/17 02:08; Start 01/02/17 at 19:05 Alprazolam (Xanax) 0.5 mg PRN Q8HRS PRN PO ANXIETY / AGITATION Last administered on 01/04/17 01:02; Start 01/02/17 at 19:15 Lorazepam (Ativan) 2 mg PRN Q4HRS PRN IV ANXIETY / AGITATION; Start 01/02/17 at 19:15 Zolpidem Tartrate (Ambien) 5 mg PRN QHS PRN PO INSOMNIA, MAY REPEAT IN 1HR Last administered on 01/03/17 21:48; Start 01/02/17 at 19:15 Ketorolac Tromethamine (Toradol) 30 mg PRN Q6HRS PRN IV PAIN Last administered on 01/04/17 07:06; Start 01/03/17 at 02:00; Stop 01/08/17 at 01:59 Alprazolam (Xanax) 0.5 mg STK-MED ONCE .ROUTE ; Start 01/04/17 at 01:01; Stop at 01:02; Status DC Active Scripts Active Reported Norvasc (Amlodipine Besylate) 5 Mg Tablet 5 Mg PO DAILY Hydroxyzine Hcl 25 Mg Tablet 25 Mg PO TID Oxcarbazepine 300 Mg Tablet 2 Tab PO BID Risperdal (Risperidone) 3 Mg Tablet 1 Tab PO QHS Prozac (Fluoxetine Hcl) 40 Mg Capsule 40 Mg PO DAILY Ativan (Lorazepam) 0.5 Mg Tablet 0.25 Mg PO Q12HR Vitals/I & O Vital Sign - Last 24 Hours 01/03/17 01/03/17 01/03/17 01/03/17 08:00 11:00 13:55 15:00 Temp 97.8 98.9 99.1 97.8 98.9 99.1 Pulse 72 89 69 Resp 22 22 24 B/P 128/86 138/83 122/84 Pulse Ox 98 96 96 O2 Delivery Room Air Room Air Room Air Room Air 01/03/17 01/03/17 01/04/17 01/04/17 19:13 23:03 03:21 06:31 Temp 98.1 97.8 96.4 98.1 97.8 96.4 Pulse 97 75 72 65 Resp 16 20 16 20 B/P 119/81 115/73 137/89 Pulse Ox 97 96 97 95 O2 Delivery Room Air Room Air Room Air Intake and Output 01/03/17 01/03/17 01/04/17 15:00 23:00 07:00 Intake Total 480 ml 820 ml 120 ml Output Total 600 ml 700 ml Balance -120 ml 120 ml 120 ml JASON CORTES MD Jan 04, 2017 07:40
[2017-01-04] MEDS ORDERED: ALPRAZOLAM 0.5 MG TABLET. PO PRN (13:45)
--- NOTE | 2017-01-05 06:34 | DS ---
DATE OF DISCHARGE: 01/04/2017 DISCHARGE DIAGNOSES: 1. Suicidal ideations, resolved. 2. Anxiety. BRIEF HOSPITAL COURSE: A 31-year-old male patient with history of schizophrenia, hypertension, presented to the ER with a history of behavioral disorders with reported suicidal ideations. The patient was trying to kill himself; however, he did not succeed in his attempt. During my exam yesterday, the patient says he had suicidal ideations; however, is alert and oriented times 3. He says he was hearing something, but this morning he denies any suicidal ideations, homicidal ideations or plans. During the hospitalization, I did discuss with the social service assistant who has experience with psychiatric behavioral therapy, contacted in-hospital psychiatric facility transfer. However, the patient was declined by several facilities due to his previous history of admissions. Apparently, the patient knows what to tell to get admitted to the hospital. Given his less acuity, the patient's admission to inpatient psychiatry has been declined by several facilities. At the time of my examination, the patient is alert and oriented. He says he would like to follow up with outpatient behavioral therapy, and the family members, father and mother was contacted, and social service assistant ____ today. He has planned for patient's discharge. Today he is going to be discharged to patient's parents' home. Later he will be following with his own psychiatrist and therapist at the [facility]. DISCHARGE EXAMINATION: Please see my progress note. DISCHARGE CONDITION: Stable. PROGNOSIS: Guarded. FOLLOWUP: With outpatient psychiatry and therapy. DISCHARGE MEDICATIONS: Home medications reviewed and reconciled. Please see MRAD. Total time spent for discharge is 32 minutes for patient education, counseling, and coordination of care. JASON CORTES MD DR: STEVE/marta JOB#: [id number] / [id number]
== END 2017-01-04 12:45 | disposition home or self-care (01) | DRG 880 ==
LOC: ER 13:44 → 5 NORTH 17:29
PROVIDERS: ADMIT Internal Medicine; ATTEND Internal Medicine
DX: F41.9 Anxiety disorder, unspecified (principal); F32.9 Major depressive disorder, single episode, unspecified; T14.91 Suicide attempt; F84.0 Autistic disorder; X83.8XXA Intentional self-harm by other specified means, initial encounter; F20.9 Schizophrenia, unspecified; I10 Essential (primary) hypertension
CPT/HCPCS: 36415; 80048; 81001; 85027; 93005; G0480; G0481; J1885; J2405; 99285-25

== ENCOUNTER 2017-01-06 13:59 | Emergency (ER) | payer MEDICARE, OTHER ==
[~2017-01-06] VITALS: Ht 177.8 cm; Wt 101.2 kg
[~2017-01-06 13:59] MED LIST: AMLO5TAB4 PO; FLUO40CA9 PO; HYDR25TA PO; LORA0.5T96 PO; OXCA300T PO; RISP3TAB23 PO
[2017-01-06] MEDS ORDERED: IV NORMAL SALINE 1000ML BAG 1,000 ML IV SCH (15:12)
[2017-01-06] MEDS ORDERED: FAMOTIDINE 20 MG/2 ML VIAL IVP ONE (15:15)
[2017-01-06] MEDS ORDERED: ONDANSETRON PF 4 MG/2 ML VIAL. IV ONE (15:15)
--- NOTE | 2017-01-06 15:22 | PHYS DOC ---
Past Medical History Past Medical History: Hypertension, Schizophrenia, Unknown, Other Additional Past Medical Histor: AUTISM, PT IS POOR HISTORIAN- FUNCTIONS @ LEVEL OF EARLY ADOLESCENT Past Surgical History: Other Additional Past Surgical Histo: PT DENIES, IS POOR HISTORIAN Alcohol Use: None Drug Use: Marijuana Adult General Chief Complaint Chief Complaint: MULTIPLE COMPLAINTS HPI HPI Patient is a 31 year old male who presents with multiple complaints. The patient has history of autism and is a poor historian. The patient came to the emergency department by EMS with complaints of "feeling sick." The patient is requesting to be admitted to the hospital because of how poorly he feels. Patient has multiple complaints including generalized fatigue, right elbow pain , left knee pain, nausea, vomiting, abdominal pain, shortness of breath, and chest pain. The patient is unable to establish a coherent timeline of events. During triage was reported that the patient has felt bad for 2 weeks, however the patient states that he has felt bad longer than that. Family is not currently present with the patient but they have been contacted. They do confirm the patient has a level of intellectual disability and functions at a level consistent with a 9 to 10-year-old. Patient also is voicing suicidal ideation. The patient admitted during triage that he wanted to take a knife and cut his own throat because he feels so poorly. The patient confirm this on my interview. Review of Systems Review of Systems Constitutional: Generalized weakness, fever, chills [] HENT: Nasal congestion, sore throat [] Respiratory: Shortness of breath, cough [] Cardiovascular: Chest pain [] GI: Nausea, vomiting, abdominal pain [] : Denies dysuria or hematuria [] Musculoskeletal: Back pain, right elbow pain, left knee pain [] Integument: Denies rash or skin lesions [] Neurologic: Headache [] Current Medications Current Medications Current Medications Medications (Trade) Dose Ordered Sig/Niels Start Time Stop Time Status Last Admin Dose Admin Acetaminophen (Tylenol) 650 mg 1X ONCE 01/06/17 20:15 01/06/17 20:20 DC Famotidine (Pepcid) 20 mg 1X ONCE 01/06/17 15:15 01/06/17 15:21 DC 01/06/17 15:15 20 MG Ondansetron HCl (Zofran) 4 mg 1X ONCE 01/06/17 15:15 01/06/17 15:21 DC 01/06/17 15:15 4 MG Sodium Chloride (Iv Sodium Chloride 0.9% 1000ml Bag) 1,000 ml @ 1,000 mls/hr Q1H 01/06/17 15:12 01/06/17 16:11 DC 01/06/17 14:30 1,000 MLS/HR Allergies Allergies Allergies Coded Allergies Type Severity Reaction Last Updated Verified No Known Drug Allergies 01/02/17 No Physical Exam Physical Exam Constitutional: Alert, afebrile, appears in mild discomfort. [] HENT: Normocephalic, atraumatic, bilateral external ears normal, oropharynx dry , no oral exudates, nose normal. [] Eyes: PERRLA, EOMI, conjunctiva normal, no discharge. [] Neck: Normal range of motion, no tenderness, supple, no stridor. [] Cardiovascular: Tachycardic, regular rhythm, no murmur [] Lungs & Thorax: Bilateral breath sounds clear to auscultation [] Abdomen: Bowel sounds normal, soft, diffusely tender in all 4 quadrants, no guarding or rebound tenderness, no masses, no pulsatile masses. [] Skin: Warm, dry, no erythema, no rash. [] Back: No tenderness, no CVA tenderness. [] Extremities: No tenderness, no cyanosis, no clubbing, ROM intact, no edema. [] Current Patient Data Vital Signs Vital Signs Date Time Temp Pulse Resp B/P Pulse Ox O2 Delivery O2 Flow Rate FiO2 01/06/17 20:06 82 20 127/79 95 Room Air 01/06/17 14:09 98.0 98.0 Lab Values Laboratory Tests Test 01/06/17 15:10 White Blood Count 10.3x10^3/uL (4.0-11.0) Red Blood Count 4.28x10^6/uL (4.30-5.70) L Hemoglobin 14.1g/dL (13.0-17.5) Hematocrit 41.3% (39.0-53.0) Mean Corpuscular Volume 97fL (79-100) Mean Corpuscular Hemoglobin 33pg (25-35) Mean Corpuscular Hemoglobin Concent 34g/dL (31-37) Red Cell Distribution Width 12.7% (11.5-14.5) Platelet Count 315x10^3/uL (140-400) Neutrophils (%) (Auto) 59% (31-73) Lymphocytes (%) (Auto) 32% (24-48) Monocytes (%) (Auto) 8% (0-9) Eosinophils (%) (Auto) 1% (0-3) Basophils (%) (Auto) 1% (0-3) Neutrophils # (Auto) 6.1x10^3uL (1.8-7.7) Lymphocytes # (Auto) 3.2x10^3/uL (1.0-4.8) Monocytes # (Auto) 0.8x10^3/uL (0.0-1.1) Eosinophils # (Auto) 0.1x10^3/uL (0.0-0.7) Basophils # (Auto) 0.1x10^3/uL (0.0-0.2) Urine Collection Type Unknown Urine Color Yellow Urine Clarity Clear Urine pH 7.0 Urine Specific [place] <=1.005 Urine Protein Negativemg/dL (NEG-TRACE) Urine Glucose (UA) Negativemg/dL (NEG) Urine Ketones (Stick) Negativemg/dL (NEG) Urine Blood Negative (NEG) Urine Nitrite Negative (NEG) Urine Bilirubin Negative (NEG) Urine Urobilinogen Dipstick 1.0mg/dL (0.2 mg/dL) Urine Leukocyte Esterase Negative (NEG) Urine RBC 0/HPF (0-2) Urine WBC 0/HPF (0-4) Urine Squamous Epithelial Cells Occ/LPF Urine Bacteria 0/HPF (0-FEW) Sodium Level 142mmol/L (136-145) Potassium Level 4.2mmol/L (3.5-5.1) Chloride Level 103mmol/L (98-107) Carbon Dioxide Level 28mmol/L (21-32) Anion Gap 11 (6-14) Blood Urea Nitrogen 11mg/dL (8-26) Creatinine 0.9mg/dL (0.7-1.3) Estimated GFR (Cockcroft-Gault) 99.1 BUN/Creatinine Ratio 12 (6-20) Glucose Level 100mg/dL (70-99) H Calcium Level 9.0mg/dL (8.5-10.1) Total Bilirubin 0.2mg/dL (0.2-1.0) Aspartate Amino Transferase (AST) 36U/L (15-37) Alanine Aminotransferase (ALT) 84U/L (16-63) H Alkaline Phosphatase 84U/L (46-116) Total Protein 7.2g/dL (6.4-8.2) Albumin 3.8g/dL (3.4-5.0) Albumin/Globulin Ratio 1.1 (1.0-1.7) Lipase 173U/L (73-393) Salicylates Level < 2.8mg/dL (2.8-20.0) L Salicylate Last Dose Date Unk Salicylate Last Dose Time Unk Urine Opiates Screen Neg (NEG) Urine Methadone Screen Neg (NEG) Acetaminophen Level < 10mcg/ml (10-30) L Acetaminophen Last Dose Date Unk Acetaminophen Last Dose Time Unk Urine Barbiturates Neg (NEG) Urine Phencyclidine Screen Neg (NEG) Urine Amphetamine/Methamphetamine Neg (NEG) Urine Benzodiazepines Screen Neg (NEG) Urine Cocaine Screen Neg (NEG) Urine Cannabinoids Screen Neg (NEG) Urine Ethyl Alcohol Neg (NEG) Laboratory Tests 01/06/17 15:10 Laboratory Tests 01/06/17 15:10 EKG EKG Interpreted by me: Heart rate 95, sinus rhythm, normal intervals, normal axis, no acute ST/T-wave abnormalities present [] Radiology/Procedures Radiology/Procedures Not performed [] Course & Med Decision Making Course & Med Decision Making Pertinent Labs and Imaging studies reviewed. (See chart for details) Patient was started on IV fluids initially in the emergency department. Patient' s blood work was unremarkable. The patient's mother arrived to the emergency department and explained that the patient has been having difficulty since his father recently . The patient continues to mentate at the level of a 9-year-old at this time and has significant challenges with intellectual disability. She states that he also has difficulty with controlling his emotions and she has been trying to get him into a psychiatric facility for help. She explained however that she has been running in the challenges with him having autism and intellectual disability as most facilities have stated they aren't equipped to address these problems with him as pertaining to suicidal ideation. I consult that Brian of PAT team who came and evaluated the patient in the emergency department. Brian contacted multiple facilities in the region for inquiry on possible inpatient treatment, however they stated that the patient would not meet criteria. After speaking with the patient's mother, she stated that she felt safe taking the patient home this evening and following up with the patient's counselor tomorrow. He safety contract was signed in the emergency department. The patient was discharged home in the care of his mother. Emanuel Disclaimer Emanuel Disclaimer This electronic medical record was generated, in whole or in part, using a voice recognition dictation system. Departure Departure Impression: Primary Impression: Suicidal ideation Additional Impressions: Autism Intellectual disability Disposition: HOME, SELF-CARE Condition: IMPROVED Referrals: UNKNOWN PCP NAME (PCP) Patient Instructions: Suicide, Helping Someone Who is Suicidal Additional Instructions: Follow-up with your health care provider, therapist, and contact lens fitter tomorrow. Return to the emergency department for any worsening symptoms. Problem Qualifiers LARRY STEEL MD Jan 06, 2017 15:22
[2017-01-06 15:31] LABS: BASO # 0.1 x10^3/uL (0.0-0.2); BASO % 1 % (0-3); EOS % 1 % (0-3); HEMATOCRIT 41.3 % (39.0-53.0); HEMOGLOBIN 14.1 g/dL (13.0-17.5); LYMPH # 3.2 x10^3/uL (1.0-4.8); LYMPH % 32 % (24-48); MEAN CORPUSCULAR HEMOGLOBIN 33 pg (25-35); MEAN CORPUSCULAR HGB CONC 34 g/dL (31-37); MEAN CORPUSCULAR VOLUME 97 fL (79-100); MONO % 8 % (0-9); NEUT % 59 % (31-73); PLATELET COUNT 315 x10^3/uL (140-400); RED BLOOD COUNT 4.28 x10^6/uL (4.30-5.70); RED CELL DISTRIBUTION WIDTH 12.7 % (11.5-14.5); WHITE BLOOD COUNT 10.3 x10^3/uL (4.0-11.0)
[2017-01-06 15:33] LABS: BILIRUBIN,URINE NEGATIVE (NEG); GLUCOSE,URINE NEGATIVE (NEG); NITRITE,URINE NEGATIVE (NEG); PROTEIN,URINE NEGATIVE (NEG-TRACE)
[2017-01-06 15:45] LABS: BACTERIA,URINE 0 /HPF (0-FEW); BARBITURATES NEG (NEG); BENZODIAZEPINES NEG (NEG); CANNABINOIDS NEG (NEG); COCAINE NEG (NEG); ETHANOL, URINE NEG (NEG); METHADONE NEG (NEG); OPIATES NEG (NEG); PHENCYCLIDINE NEG (NEG); RBC,URINE 0 /HPF (0-2); SQUAMOUS EPITHELIAL CELL,UR OCC /LPF; WBC,URINE 0 /HPF (0-4)
[2017-01-06 15:50] LABS: CREATININE 0.9 mg/dL (0.7-1.3); GFR 99.1; POTASSIUM 4.2 mmol/L (3.5-5.1)
[2017-01-06 15:56] LABS: ALBUMIN 3.8 g/dL (3.4-5.0); ALBUMIN/GLOBULIN RATIO 1.1 (1.0-1.7); TOTAL BILIRUBIN 0.2 mg/dL (0.2-1.0); TOTAL PROTEIN 7.2 g/dL (6.4-8.2)
[2017-01-06 20:06] VITALS: BP 127/79
[2017-01-06] MEDS ORDERED: ACETAMINOPHEN 325 MG TABLET. PO ONE ×2 (20:15)
--- NOTE | 2017-01-07 06:23 | EKG ---
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
== END 2017-01-06 22:30 | disposition home or self-care (01) ==
LOC: ER 13:59
DX: R45.851 Suicidal ideations (principal); F84.0 Autistic disorder; F79 Unspecified intellectual disabilities; R10.84 Generalized abdominal pain; R11.2 Nausea with vomiting, unspecified; M25.521 Pain in right elbow; M25.562 Pain in left knee; R00.0 Tachycardia, unspecified; M54.9 Dorsalgia, unspecified; R06.02 Shortness of breath; R53.83 Other fatigue; R07.9 Chest pain, unspecified; I10 Essential (primary) hypertension; F20.9 Schizophrenia, unspecified; F12.10 Cannabis abuse, uncomplicated
CPT/HCPCS: 36415; 80053; 80305; 80320; 81001; 83690; 85027; 93005; 96361; 96374; 96375; 99285; G6038; J2405; J7030; S0028; G0481; 80196

== ENCOUNTER 2017-01-08 23:41 | Emergency (ER) | payer MEDICARE, OTHER ==
[~2017-01-08] VITALS: Ht 162.6 cm; Wt 101.2 kg
[2017-01-09 00:25] LABS: BASO # 0.1 x10^3/uL (0.0-0.2); BASO % 1 % (0-3); EOS % 2 % (0-3); HEMATOCRIT 41.2 % (39.0-53.0); HEMOGLOBIN 14.3 g/dL (13.0-17.5); LYMPH # 4.3 x10^3/uL (1.0-4.8); LYMPH % 39 % (24-48); MEAN CORPUSCULAR HEMOGLOBIN 33 pg (25-35); MEAN CORPUSCULAR HGB CONC 35 g/dL (31-37); MEAN CORPUSCULAR VOLUME 96 fL (79-100); MONO % 9 % (0-9); NEUT % 50 % (31-73); PLATELET COUNT 295 x10^3/uL (140-400)
[2017-01-09 00:32] LABS: BARBITURATES NEG (NEG); BENZODIAZEPINES POS (NEG); CANNABINOIDS NEG (NEG); COCAINE NEG (NEG); METHADONE NEG (NEG); OPIATES NEG (NEG); PHENCYCLIDINE NEG (NEG)
[2017-01-09 00:34] LABS: ETHANOL, URINE NEG (NEG)
[2017-01-09 00:35] LABS: CALCIUM 8.7 mg/dL (8.5-10.1); CREATININE 1.1 mg/dL (0.7-1.3); GFR 78.6; POTASSIUM 3.6 mmol/L (3.5-5.1)
[2017-01-09 00:56] VITALS: BP 156/83
[2017-01-09] MEDS ORDERED: LORA0.5T96 PO (02:46)
--- NOTE | 2017-01-09 02:46 | PHYS DOC ---
Past Medical History Past Medical History: Hypertension, Schizophrenia, Unknown, Other Additional Past Medical Histor: AUTISM, PT IS POOR HISTORIAN- FUNCTIONS @ LEVEL OF EARLY ADOLESCENT Past Surgical History: Other Additional Past Surgical Histo: PT DENIES, IS POOR HISTORIAN Alcohol Use: None Drug Use: Marijuana Adult General Chief Complaint Chief Complaint: SUICDAL IDEATION HPI HPI 31-year-old male who has history of autism and schizophrenia who presents for suicidal ideation as well as chest wall pain for the last day. Patient does have a developmental age of a 13-year-old. I evaluated him before for suicidal ideation. He states he would like to cut his neck and attempted take his life. He is also complaining of some chest wall pain. He has no history of cardiac problems. Patient is at his stated mental baseline. He can answer all my questions and appears alert and oriented on my exam. He denies any recent drug or alcohol use. Review of Systems Review of Systems Constitutional: Denies fever or chills [] Eyes: Denies change in visual acuity, redness, or eye pain [] HENT: Denies nasal congestion or sore throat [] Respiratory: Denies cough or shortness of breath [] Cardiovascular: No additional information not addressed in HPI [] GI: Denies abdominal pain, nausea, vomiting, bloody stools or diarrhea [] : Denies dysuria or hematuria [] Musculoskeletal: Denies back pain or joint pain [] Integument: Denies rash or skin lesions [] Neurologic: Denies headache, focal weakness or sensory changes [] Endocrine: Denies polyuria or polydipsia [] Current Medications Current Medications Current Medications Medications (Trade) Dose Ordered Sig/[facility] Start Time Stop Time Status Last Admin Dose Admin Lorazepam (Ativan) 0.5 mg 1X ONCE 01/09/17 03:00 01/09/17 03:01 DC 01/09/17 03:00 0.5 MG Allergies Allergies Allergies Coded Allergies Type Severity Reaction Last Updated Verified No Known Drug Allergies 01/02/17 No Physical Exam Physical Exam Constitutional: Well developed, well nourished, no acute distress, non-toxic appearance. [] HENT: Normocephalic, atraumatic, bilateral external ears normal, oropharynx moist, no oral exudates, nose normal. [] Eyes: PERRLA, EOMI, conjunctiva normal, no discharge. [] Neck: Normal range of motion, no tenderness, supple, no stridor. [] Cardiovascular:Heart rate regular rhythm, no murmur [] Lungs & Thorax: Bilateral breath sounds clear to auscultation [] Abdomen: Bowel sounds normal, soft, no tenderness, no masses, no pulsatile masses. [] Skin: Warm, dry, no erythema, no rash. [] Back: No tenderness, no CVA tenderness. [] Extremities: No tenderness, no cyanosis, no clubbing, ROM intact, no edema. [] Neurologic: Alert and oriented X 3, normal motor function, normal sensory function, no focal deficits noted. [] Psychologic: Affect normal, judgement normal, mood normal. [] Current Patient Data Vital Signs Vital Signs Date Time Temp Pulse Resp B/P Pulse Ox O2 Delivery O2 Flow Rate FiO2 01/09/17 00:56 98 16 156/83 96 Room Air 01/08/17 23:45 97.9 97.9 Lab Values Laboratory Tests Test 01/09/17 00:17 White Blood Count 11.0x10^3/uL (4.0-11.0) Red Blood Count 4.30x10^6/uL (4.30-5.70) Hemoglobin 14.3g/dL (13.0-17.5) Hematocrit 41.2% (39.0-53.0) Mean Corpuscular Volume 96fL (79-100) Mean Corpuscular Hemoglobin 33pg (25-35) Mean Corpuscular Hemoglobin Concent 35g/dL (31-37) Red Cell Distribution Width 13.0% (11.5-14.5) Platelet Count 295x10^3/uL (140-400) Neutrophils (%) (Auto) 50% (31-73) Lymphocytes (%) (Auto) 39% (24-48) Monocytes (%) (Auto) 9% (0-9) Eosinophils (%) (Auto) 2% (0-3) Basophils (%) (Auto) 1% (0-3) Neutrophils # (Auto) 5.5x10^3uL (1.8-7.7) Lymphocytes # (Auto) 4.3x10^3/uL (1.0-4.8) Monocytes # (Auto) 1.0x10^3/uL (0.0-1.1) Eosinophils # (Auto) 0.2x10^3/uL (0.0-0.7) Basophils # (Auto) 0.1x10^3/uL (0.0-0.2) Sodium Level 140mmol/L (136-145) Potassium Level 3.6mmol/L (3.5-5.1) Chloride Level 103mmol/L (98-107) Carbon Dioxide Level 27mmol/L (21-32) Anion Gap 10 (6-14) Blood Urea Nitrogen 12mg/dL (8-26) Creatinine 1.1mg/dL (0.7-1.3) Estimated GFR (Cockcroft-Gault) 78.6 Glucose Level 129mg/dL (70-99) H Calcium Level 8.7mg/dL (8.5-10.1) Troponin I Quantitative < 0.017ng/mL (0.000-0.055) Urine Opiates Screen Neg (NEG) Urine Methadone Screen Neg (NEG) Urine Barbiturates Neg (NEG) Urine Phencyclidine Screen Neg (NEG) Urine Amphetamine/Methamphetamine Neg (NEG) Urine Benzodiazepines Screen Pos (NEG) Urine Cocaine Screen Neg (NEG) Urine Cannabinoids Screen Neg (NEG) Urine Ethyl Alcohol Neg (NEG) Laboratory Tests 01/09/17 00:17 Laboratory Tests 01/09/17 00:17 EKG EKG EKG as interpreted by me shows a sinus rhythm with a rate of 80 beats per minute. There are no acute ST findings. Intervals are normal. This EKG does not meet STEMI criteria. Radiology/Procedures Radiology/Procedures [] Course & Med Decision Making Course & Med Decision Making Pertinent Labs and Imaging studies reviewed. (See chart for details) This 31-year-old male who is presenting with some chest wall pain and a laboratory workup that was unremarkable including an EKG and a troponin level that was not elevated. The psychiatric assessment team was called in to assess the patient for his suicidal ideation. Patient was not deemed to be suicidal at this time. The mother is comfortable with him going home under her care and will [facility] to have possible resources come into the home to help him cope with his ongoing suicidal thoughts. Mother was provided all necessary resources. He was discharged without incident into the care of his mother. Dragon Disclaimer Dragon Disclaimer This electronic medical record was generated, in whole or in part, using a voice recognition dictation system. Departure Departure Impression: Primary Impression: Chest wall pain Additional Impression: Suicidal ideation Disposition: HOME, SELF-CARE Admitting Physician: Other Condition: STABLE Referrals: UNKNOWN PCP NAME (PCP) Patient Instructions: Chest Wall Pain, [id number], Suicidal Feelings, How to Help Yourself Additional Instructions: Please use the safety plan discussed with the counselor and follow up [facility] Tuesday. Take your ativan as needed for any anxiety. Return to the ER if you develop any worsening of your symptoms. Scripts Lorazepam (Ativan)0.5 Mg Tablet0.25 Mg PO Q12HR PRN ANXIETY / AGITATION #6 TAB Prov:AXEL LESLIE DO 01/09/17 Problem Qualifiers AXEL LESLIE DO Jan 09, 2017 02:46
[2017-01-09] MEDS ORDERED: LORAZEPAM 1 MG TABLET. PO ONE (03:00)
--- NOTE | 2017-01-09 07:13 | EKG ---
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
== END 2017-01-09 03:03 | disposition home or self-care (01) ==
LOC: ER 23:41
DX: R07.89 Other chest pain (principal); R45.851 Suicidal ideations; I10 Essential (primary) hypertension; F84.0 Autistic disorder; F20.9 Schizophrenia, unspecified; F12.10 Cannabis abuse, uncomplicated
CPT/HCPCS: 36415; 80048; 84484; 85027; 93005; 99285; G0481

== ENCOUNTER → 2017-05-25 | Day surgery (SDC) | payer MEDICARE, OTHER ==
[~2017-05-25] MED LIST changes: +ATOM40CA PO; +HALO1TAB PO; +HYDROmorphone 2 MG/ML VIAL IV PRN; +IV RINGERS,LACTATED 1000ML 1,000 ML IV SCH; +LIDOCAINE 1% 1 ML SYRINGE. ID PRN; +MORPHINE SULFATE 2 MG/ML DISP.SYRIN. IV PRN; +OXCA600T3 PO; +PROCHLORPERAZINE 10 MG/2 ML VIAL. IV PRN; +PROPOFOL 60 ML IV ONE; +fentaNYL PF VIAL 100 MCG/2 ML VIAL IV PRN
[2017-05-25 08:16] VITALS: BP 118/65
--- NOTE | 2017-05-26 14:01 | PATHOLOGY ---
PATHOLOGY REPORT * * * * * * * * FINAL DIAGNOSIS: A. Esophageal biopsies, distal esophagus: - Segments of hyperplastic squamous esophageal mucosa consistent with reflux esophagitis. B. Colon biopsies, sigmoid polyp: - Hyperplastic polyp. COMMENT: Sections of the distal esophageal biopsy reveal segments of tangentially oriented, hyperplastic squamous esophageal mucosa showing focal acute and chronic inflammation. The findings are consistent with reflux esophagitis. There is no evidence of Brock's change, dysplasia, or malignancy. Sections of the sigmoid colon biopsy reveal a hyperplastic polyp. There are no adenomatous changes or evidence of malignancy. (JPM:mgr; 05/26/2017) REPORT ELECTRONICALLY SIGNED BY: Adalid Garcia M.D. DATE/TIME: 05/26/2017 14:00 * * * * * * * * GROSS PATHOLOGY: A. Received in formalin labeled "Nestor Ayala, distal esophagus," are four segments of duron soft tissue measuring 1.0 x 0.8 x 0.3 cm in aggregate dimensions and ranging from 0.3 to 0.5 cm in maximum dimension. The specimen is submitted entirely in cassette A1 B. Received in formalin labeled "Nestor Mathur, sigmoid polyp," are two segments of duron soft tissue measuring 0.6 x 0.3 x 0.3 cm in aggregate dimensions and ranging from 0.3 to 0.3 cm in maximum dimension. The specimen is submitted entirely in cassette B1. (TSD; 05/25/2017) INITIAL CPT CODE(S): A; 79863 B; 26690 Professional services performed [place] [facility] [address] Technical services performed by [facility] at [address] [place] [address] [address], [place] [address]. SPECIMEN(S) RECEIVED: A.Distal esophagus B.Sigmoid polyp CLINICAL HISTORY: CB, heartburn PATIENT: GABBI AYALA /AGE: 9 1985 (Age: 31) PATIENT #: [id number] ALT CASE #: SPECIMEN COLLECTION DATE: 05/25/2017 SPECIMEN RECEIVED DATE: 05/25/2017 [facility] - [address] [place] [address] - PHONE: [phone] * * * END OF REPORT * * *
== END | disposition home or self-care (01) ==
LOC: ENDOS 06:19
PROVIDERS: ATTEND Internal Medicine Gastroenterology
DX: D12.5 Benign neoplasm of sigmoid colon (principal); K64.1 Second degree hemorrhoids; K29.50 Unspecified chronic gastritis without bleeding; K21.0 Gastro-esophageal reflux disease with esophagitis; E78.00 Pure hypercholesterolemia, unspecified; I10 Essential (primary) hypertension; J45.909 Unspecified asthma, uncomplicated; K21.9 Gastro-esophageal reflux disease without esophagitis; M19.90 Unspecified osteoarthritis, unspecified site; F41.9 Anxiety disorder, unspecified; F32.9 Major depressive disorder, single episode, unspecified; F17.200 Nicotine dependence, unspecified, uncomplicated; Z86.69 Personal history of other diseases of the nervous system and sense organs; Z88.8 Allergy status to other drugs, medicaments and biological substances; Z87.39 Personal history of other diseases of the musculoskeletal system and connective tissue; Z72.0 Tobacco use
CPT/HCPCS: 43239; 45380; J2704